=== PATIENT | female | born 1950 | race African-American/Black ===

== ENCOUNTER 2017-11-29 16:09 | Inpatient (IN) | payer MEDICARE ==
[~2017-11-29] VITALS: Ht 177.8 cm; Wt 54.4 kg
[2017-11-29 16:12] VITALS: BP 118/78
--- NOTE | 2017-11-29 17:15 | NUR ---
PT BIBA TO BED 1.
--- NOTE | 2017-11-29 17:18 | NUR ---
66F BIBA FROM FIELD C/O ALTERED LEVEL OF CONSCIOUSNESS; PER [facility], PT "WAS SUPPOSED TO BE AT A , WENT MISSING FOR SIX HOURS AND FOUND IN A [place] BY FAMILY"; PT APPEARS TIRED, WAKES TO NAME, WITH CONFUSION; PT ALERT TO SELF, TIME, AND PLACE, BUT UNAWARE OF SITUATION; PT STATES NO PAIN, NO SHORTNESS OF BREATH, NO CHEST PAIN, AND NO N/V/D AT THIS TIME; PT ABLE TO FOLLOW COMMANDS; BL LUNG SOUNDS CLEAR, RR EVEN/UNLABORED AT THIS TIME; SKIN IS WARM/DRY/INTACT; PT PLACED ON MONITOR, RESTING IN BED WITH HOB ELEVATED AND IN LOWEST POSITION; POSITIONED FOR COMFORT; ER MD MADE AWARE OF STATUS. WILL CONTINUE TO MONITOR.
--- NOTE | 2017-11-29 17:20 | NUR ---
PT TAKEN TO CT AND XRAY VIA GURNEY, ACCOMPANIED BY BUSINESS SERVICES SALES REPRESENTATIVE.
--- NOTE | 2017-11-29 17:30 | NUR ---
PT PLACED ON BED KAUFFMAN, WAITING FOR URINE. WILL CONTINUE TO MONITOR.
[2017-11-29] MEDS ORDERED: NACL 0.9% 2,500 ML IV ONE (18:05)
[2017-11-29] MEDS ORDERED: VANCOMYCIN PER PHARMACY MC PRN (18:10)
[2017-11-29] MEDS ORDERED: PIPERACILLIN/TAZOBACTAM 3.375 GM in DEXTROSE 5% 50 ML IV ONE (18:10)
[2017-11-29] MEDS ORDERED: VANCOMYCIN 1GM/DEXT 5% PREMIX 200 ML IV ONE (18:10)
[2017-11-29 18:11] LABS: HEMATOCRIT 32.2 % (36-48); HEMOGLOBIN 10.2 g/dL (12.0-16.0); MEAN CORPUSCULAR HEMOGLOBIN 21 pg (27-31); MEAN CORPUSCULAR HGB CONC 32 g/dL (33-37); MEAN CORPUSCULAR VOLUME 66 fL (80-94); PLATELET COUNT (AUTO) 164 K/uL (140-450); RED BLOOD CELL COUNT(AUTO) 4.86 MIL/uL (4.20-5.40); RED CELL DISTRIBUTION WIDTH 15.6 % (11.6-13.7); WHITE BLOOD COUNT (AUTO) 7.9 K/uL (4.8-10.8)
[2017-11-29] MEDS ORDERED: cefTRIAXone 2,000 MG in DEXTROSE 5% 100 ML IV ONE (18:20)
[2017-11-29] MEDS ORDERED: VANCOMYCIN 1,000 MG in DEXTROSE 5% 250 ML IV ONE (18:25)
[2017-11-29] MEDS ORDERED: ACETAMINOPHEN 650 MG/20.3 ML UDC ONE (18:26)
[2017-11-29] MEDS ORDERED: cefTRIAXone 2,000 MG VIAL ONE (18:42)
--- NOTE | 2017-11-29 18:49 | NUR ---
DAUGHTERS PROVIDED NUMBERS TO CONTACT PT: MEI ([phone], ATA [phone]
[2017-11-29] MEDS ORDERED: VANCOMYCIN 1,000 MG VIAL ONE (18:53)
--- NOTE | 2017-11-29 18:57 | NUR ---
PT APPEARS TO BE SLEEPING COMFORTABLY IN BED; RR EVEN/UNLABORED; PT AROUSABLE TO NAME; POSITIONED FOR COMFORT; WILL CONTINUE TO MONITOR.
--- NOTE | 2017-11-29 19:26 | NUR ---
Pt report given to JUANY HOOD. Transfer of care at this time.
--- NOTE | 2017-11-29 20:15 | NUR ---
DR COELHO AT BEDSIDE W/ MYSELF FOR LUMBAR PUNTURE, PROCEDURE NOT SUCCESSFULL, PT TOLERATED WELL. WILL CONTINUE TO MONITOR.
--- NOTE | 2017-11-29 21:30 | NUR ---
PT SLEEPIN GIN BED AT THIS TIME, ALERT TO NAME AND ENVIRONMENTAL STIMULI, PT NOT AWARE OF WHICH HOSPITAL SHE IS AT THIS TIME, REORIENTED.
[2017-11-29 21:55] LABS: EOSINOPHILS % (MANUAL) 2 % (0-4); LYMPHOCYTES % (MANUAL) 7 % (20-46); MONOCYTES % (MANUAL) 5 % (5-12)
[2017-11-29 22:10] LABS: APPEARANCE,URINE CLEAR (CLEAR); BILIRUBIN,URINE NEGATIVE (NEGATIVE); BLOOD, URINE NEGATIVE (NEGATIVE); COLOR,URINE YELLOW (YELLOW); LEUKOCYTE ESTERASE ,URINE NEGATIVE (NEGATIVE); NITRITE, URINE NEGATIVE (NEGATIVE); PH,URINE 5.5 (5.0-9.0); UGLUCOSE NEGATIVE (NEGATIVE)
[2017-11-29 22:14] LABS: ALBUMIN 2.9 g/dL (3.4-5.0); ANION GAP 14.3 (8-16); ASPARTATE AMINOTRANSFERASE 19 U/L (15-37); CARBON DIOXIDE 25.5 mmol/L (21-32); CHLORIDE 107 mmol/L (98-107); CREATININE 2.7 mg/dL (0.6-1.3); GFR ARICAN-AMERICAN 23 mL/min (>90); GLUCOSE 84 mg/dL (74-106); MAGNESIUM 1.6 mg/dL (1.8-2.4); POTASSIUM 3.8 mmol/L (3.5-5.1); SALICYLATE 3.4 mg/dL (2.8-20.0); SODIUM SERUM 143 mmol/L (136-145); TOTAL BILIRUBIN 0.8 mg/dL (0.0-1.0); UREA NITROGEN, BLOOD 36 mg/dL (7-18)
[2017-11-29 22:16] LABS: ACETAMINOPHEN < 0.5 ug/ml (10-30)
[2017-11-29] MEDS ORDERED: ASPIRIN 325 MG TAB PO SCH (22:35)
[2017-11-29 23:14] LABS: BARBITURATE, URINE NEG. ng/ml (NEG <=200); BENZODIAZEPINE, URINE NEG. ng/mL (NEG <=200); CANNABINOID, URINE NEG. ng/mL (NEG <=50); COCAINE, URINE NEG. ng/mL (NEG <=300); OPIATE, URINE NEG. ng/mL (NEG <=2000); PHENCYCLIDINE SCREEN,URINE NEG. ng/mL (NEG <=25)
--- NOTE | 2017-11-29 23:30 | NUR ---
pt resting in bed, comfort needs met at this time, will continue to monitor.
[2017-11-30] MEDS ORDERED: ASPIRIN 325 MG TAB PO ONE (00:20)
--- NOTE | 2017-11-30 00:30 | NUR ---
pt sleeping, arousable to name and environmental stimuli, when asking pt name, birthdate and location pt is answering appropriately, when i aked pt what day it was she answered satuday and when asked what she was doing earlier yesterday she states " i really dont know".
--- NOTE | 2017-11-30 02:07 | NUR ---
PT SLEEPING IN BED, VSS, WILL CONTINUE TO MONITOR.
[2017-11-30] MEDS ORDERED: ONDANSETRON 4 MG/2 ML VIAL IM/IVP PRN (02:20)
[2017-11-30] MEDS ORDERED: ZOLPIDEM 5 MG TAB PO PRN (02:20)
[2017-11-30] MEDS ORDERED: ACETAMINOPHEN 325 MG TAB PO PRN (02:20)
[2017-11-30] MEDS ORDERED: MORPHINE SULFATE 2 MG/ML SYR IVP PRN (02:20)
[2017-11-30] MEDS ORDERED: HEPARIN PER PHARMACY MC PRN (02:20)
[2017-11-30] MEDS ORDERED: LORazepam 0.5 MG TAB PO PRN (02:20)
[2017-11-30] MEDS ORDERED: hePARIN / DEXT 5% PREMIX 250 ML IV SCH ×2 (02:20→12:30)
[2017-11-30] MEDS ORDERED: DOCUSATE SODIUM 100 MG GELCAP PO PRN (02:20)
[2017-11-30] MEDS ORDERED: HYDROcodone/APAP 7.5/325 MG 1 TAB PO PRN (02:20)
[2017-11-30 02:58] VITALS: BP 141/78
--- NOTE | 2017-11-30 02:58 | NUR ---
ADMITTED A 56F FROM ER. CAME BY DONYA DUE TO ALOC, ELEVATED TROPONIN . AWAKE,ALERT AND ORIENTED X3-4. STILL WITH FORGETFULNESS AT TIMES. WITH IV ACCESS ON THE LT FA #20.CLEAR AND PATENT. CAN AMBULATE WITH ASSIST. ORIENTED TO HOSPITAL ROUTINES. PLAN OF CARE DISCUSSED AND STILL NEED REINFORCEMENT. BED ON POW POSITION. CALL LIGHT PLACED WITHIN EASY REACH. WILL CONTINUE TO MONITOR.
--- NOTE | 2017-11-30 02:58 | NUR ---
Patient will be admitted to care of DR. BENSON. Admited to TELE. Will go to [id number]. Belongings list completed. Report to NEVA.
[2017-11-30] MEDS ORDERED: NITROGLYCERIN 0.4 MG TAB SL PRN (03:30)
[2017-11-30] MEDS ORDERED: PRED20TA5 PO (03:35)
[2017-11-30] MEDS ORDERED: MECLIZINE 25 MG TAB PO PRN (03:35)
[2017-11-30] MEDS ORDERED: LEVO500P IV (03:35)
[2017-11-30] MEDS ORDERED: CARV12.52 PO (03:35)
--- NOTE | 2017-11-30 03:56 | NUR ---
HEPARIN DRIP STARTED ORDERED. IST PTT TO BE DRAWN 0930.
[2017-11-30 03:59] LABS: CHOL/HDL RATIO 2.7 (1-4.5); FREE T4 (FREE THYROXINE) 1.06 ng/dL (0.76-1.46); MAGNESIUM 1.6 mg/dL (1.8-2.4); PHOSPHORUS 3.3 mg/dL (2.5-4.9); THYROID STIMULATING HORMONE 2.72 uIU/mL (0.34-3.74)
[2017-11-30] MEDS: NACL 0.9% 1,000 ML IV SCH ×3 (04:12→22:18)
[2017-11-30 05:30] VITALS: BP_SYST 150; BP_SYST 153; BP_DIAS 66; BP_DIAS 81
--- NOTE | 2017-11-30 07:00 | NUR ---
LT HAND IV THAT WAS STARTED FOR THE NS 100 WAS PULLED OUT. RESTARTED A NEW IV ON R HAND#22.
--- NOTE | 2017-11-30 07:30 | NUR ---
ENDORSED PT IN STABLE CONDITION TO AM NURSE.
--- NOTE | 2017-11-30 07:31 | NUR ---
RECEIVED REPORT FROM GENERAL MILLING SUPERINTENDENT NURSE NEVA AT BEDSIDE FOR CONTINUITY OF CARE. PT IS AWAKE AND ORIENTED. INTRODUCED SELF AND UPDATED BOARD. NO SIGNS OF DISTRESS. BED IN LOW POSITION, WHEELS LOCKED, CALL LIGHT WITHIN REACH. WILL CONTINUE TO MONITOR.
[2017-11-30 07:32] LABS: BASOPHILS % (AUTO) 0.4 % (0.0-2.0); EOSINOPHILS # (AUTO) 0.1 K/uL (0-0.4); HEMATOCRIT 27.3 % (36-48); HEMOGLOBIN 8.2 g/dL (12.0-16.0); LYMPHOCYTES # (AUTO) 0.7 K/uL (2.5-16.5); LYMPHOCYTES % (AUTO) 12.9 % (20.5-51.1); MEAN CORPUSCULAR HEMOGLOBIN 20 pg (27-31); MEAN CORPUSCULAR HGB CONC 30 g/dL (33-37); MEAN CORPUSCULAR VOLUME 68 fL (80-94); MONOCYTES # (AUTO) 0.5 K/uL (0.8-1.0); MONOCYTES % (AUTO) 9.2 % (1.7-9.3); NEUTROPHILS % (AUTO) 75.5 % (42.2-75.2); PLATELET COUNT (AUTO) 126 K/uL (140-450); RED BLOOD CELL COUNT(AUTO) 4.04 MIL/uL (4.20-5.40); RED CELL DISTRIBUTION WIDTH 16.1 % (11.6-13.7); WHITE BLOOD COUNT (AUTO) 5.3 K/uL (4.8-10.8)
[2017-11-30 07:46] LABS: PROTHROMBIN TIME 10.7 secs (10.8-13.4)
[2017-11-30 08:00] VITALS: BP 151/82
[2017-11-30 08:09] LABS: MAGNESIUM 1.5 mg/dL (1.8-2.4); PHOSPHORUS 3.4 mg/dL (2.5-4.9)
[2017-11-30 08:12] LABS: ANION GAP 9.7 (8-16); CARBON DIOXIDE 22.9 mmol/L (21-32); POTASSIUM 3.6 mmol/L (3.5-5.1)
[2017-11-30 08:13] LABS: CREATININE 2.4 mg/dL (0.6-1.3)
--- NOTE | 2017-11-30 08:59 | NUR ---
HELD HEPARIN DRIP. PTT REPORTED 116. PT IN NO SIGNS OF DISTRESS. NO S/SX OF BLEEDING. WILL CONTINUE TO MONITOR.
[2017-11-30] MEDS ORDERED: ASPIRIN 81 MG TAB.CHEW PO SCH (09:00)
[2017-11-30] MEDS ORDERED: METOPROLOL 25 MG TAB PO SCH (09:00)
[2017-11-30] MEDS: LISINOPRIL 5 MG TAB PO SCH (09:02)
[2017-11-30] MEDS: FERROUS GLUCONATE 324 MG TAB PO SCH ×2 (09:02→18:05)
[2017-11-30] MEDS: LACTOBACILLUS RHAMNOSUS GG 1 EACH CAP PO SCH (09:03)
[2017-11-30] MEDS: ATORVASTATIN 20 MG TAB PO SCH (09:03)
--- NOTE | 2017-11-30 09:09 | NUR ---
CALLED [facility] AND WAS INFORMED THEY WERE NOTIFIED OF THIS PATIENT'S ADMIT. FAXED INITIAL REVIEW TO [facility] [phone] PHONE [phone]
--- NOTE | 2017-11-30 09:17 | NUR ---
PATIENT HAS BEEN SCREENED AND CATEGORIZED HIGH NUTRITION RISK. PT WILL BE SEEN WITHIN 1-2 DAYS OF ADMISSION. 11/30/17-12/01/[address]
--- NOTE | 2017-11-30 10:45 | NUR ---
PT NOTES 1045 PT EVAL ORDER RECEIVED, NOTED PATIENT WITH (+) TROPONIN, AWAITING CARDIO CONSULT, WILL REQUIRE CLEARANCE TO CONT WITH PT, AND WAIT AT LEAST 24 HRS S/P PEAK TROPONIN TO INITIATE PT EVAL. NURSING AWARE.
[2017-11-30 12:00] VITALS: BP 127/69
--- NOTE | 2017-11-30 13:04 | NUR ---
STARTED HEPARIN DRIP AT 650UNITS/HR. PTT 71. PT TOLERATING WELL. NO SIGNS OF DISTRESS. WILL CONTINUE TO MONITOR.
[2017-11-30 16:00] VITALS: BP 153/73
[2017-11-30] MEDS ORDERED: FAMO-90 PO (16:45)
[2017-11-30] MEDS ORDERED: IMI50 PO (16:45)
[2017-11-30] MEDS ORDERED: NIFE60TE8 PO (16:45)
[2017-11-30] MEDS ORDERED: TAP5 PO (16:45)
[2017-11-30] MEDS ORDERED: HYDR-3004 PO (16:45)
[2017-11-30] MEDS ORDERED: SUCR1TAB35 PO (16:45)
[2017-11-30] MEDS ORDERED: DOCU-299 PO (16:45)
[2017-11-30] MEDS ORDERED: POTA10TE30 PO (16:45)
[2017-11-30] MEDS ORDERED: LISI5TAB18 PO (16:45)
[2017-11-30] MEDS ORDERED: PRED10TA5 PO (16:45)
[2017-11-30] MEDS ORDERED: MAGNESIUM OXIDE 400 MG TAB PO SCH (17:30)
[2017-11-30] MEDS: hydrALAZINE 25 MG TAB PO SCH (18:05)
--- NOTE | 2017-11-30 18:46 | NUR ---
PTT 55.2. NO CHANGE IN HEPARIN DRIP RATE. INFUSING AT 650 UNITS/HR. PT TOLERATING WELL. NO SIGNS OF DISTRESS WILL CONTINUE TO MONITOR.
--- NOTE | 2017-11-30 19:10 | NUR ---
STOPPED HEPARIN DRIP PER DR. ORDER.
--- NOTE | 2017-11-30 19:15 | NUR ---
ENDORSED PT TO ECONOMICS DEPARTMENT CHAIR NURSE RIYA AT BEDSIDE FOR CONTINUITY OF CARE. PT IN STABLE CONDITION.
[2017-11-30 20:00] VITALS: BP 141/70
--- NOTE | 2017-11-30 20:10 | NUR ---
RECEIVED REPORT FROM BRIANNA CHARGE NURSE AT BEDSIDE FOR CONTINUITY OF CARE. PT IS AWAKE AND ORIENTED. INTRODUCED SELF AND UPDATED BOARD. NO SIGNS OF DISTRESS. BED IN LOW POSITION, WHEELS LOCKED, CALL LIGHT WITHIN REACH. WILL CONTINUE TO MONITOR. IV PATENT AND INTACT
[2017-12-01] VITALS: BP 140/72
[2017-12-01 04:00] VITALS: BP 154/74
--- NOTE | 2017-12-01 06:02 | NUR ---
PTS BP 166/89 PULSE 89. O2 SAT: 98% MADE DR. ROGERS AWARE
[2017-12-01] MEDS ORDERED: ENALAPRILAT 2.5 MG/2 ML VIAL IVP PRN (06:10)
[2017-12-01] MEDS: NACL 0.9% 1,000 ML IV SCH (06:56)
--- NOTE | 2017-12-01 07:36 | NUR ---
REPORT GIVEN TO CHARGE NURSE FABRIZIO HARRINGTON FOR CONTINUITY OF CARE, PT IN STABLE CONDITION. NO S/S OF DISTRESS NOTED
[2017-12-01 08:00] VITALS: BP 157/80
[2017-12-01] MEDS: FERROUS GLUCONATE 324 MG TAB PO SCH ×2 (08:00→17:34)
[2017-12-01 08:11] LABS: T4 (THYROXINE) 7.2 ug/dL (4.5-12.0)
[2017-12-01 08:45] LABS: ANION GAP 12.5 (8-16); CREATININE 2.1 mg/dL (0.6-1.3); POTASSIUM 3.5 mmol/L (3.5-5.1)
--- NOTE | 2017-12-01 08:45 | NUR ---
PATIENT REPORT GIVEN AT BEDSIDE, PATIENT IS AAOX3 AND SHOWS NO S/S OF ACUTE DISTRESS ON ROOM AIR. ON TELE MONITOR. SKIN INTACT. NOTED IV ON THE RH AND LFT WRIST, PATENT AND INTACT. PATIENT DENIES PAIN AT THIS TIME. DISCUSSED POC WITH PATIENT AND HE VERBALIZED UNDERSTANDING. THE BED IS IN LOW POSITION WITH CALL LIGHT WITHIN REACH.
[2017-12-01 08:49] LABS: MAGNESIUM 1.5 mg/dL (1.8-2.4); PHOSPHORUS 2.4 mg/dL (2.5-4.9)
[2017-12-01 09:00] LABS: HEMATOCRIT 26.5 % (36-48); HEMOGLOBIN 8.1 g/dL (12.0-16.0); MEAN CORPUSCULAR HEMOGLOBIN 20 pg (27-31); MEAN CORPUSCULAR HGB CONC 31 g/dL (33-37); MEAN CORPUSCULAR VOLUME 66 fL (80-94); PLATELET COUNT (AUTO) 120 K/uL (140-450); RED BLOOD CELL COUNT(AUTO) 4.03 MIL/uL (4.20-5.40); RED CELL DISTRIBUTION WIDTH 15.9 % (11.6-13.7); WHITE BLOOD COUNT (AUTO) 3.9 K/uL (4.8-10.8)
[2017-12-01] MEDS ORDERED: NIFEdipine 60 MG TABER PO SCH (09:00)
[2017-12-01] MEDS ORDERED: ASPIRIN 81 MG TAB.CHEW PO SCH (09:00)
[2017-12-01] MEDS ORDERED: METHIMAZOLE 5 MG TAB PO SCH (09:00)
[2017-12-01] MEDS ORDERED: SUCRALFATE 1 GM TAB PO SCH (09:00)
[2017-12-01] MEDS ORDERED: FAMOTIDINE 20 MG TAB PO SCH (09:00)
[2017-12-01] MEDS ORDERED: predniSONE 10 MG TAB PO SCH (09:00)
[2017-12-01] MEDS ORDERED: LISINOPRIL 5 MG TAB PO SCH (09:00)
[2017-12-01] MEDS ORDERED: POTASSIUM CHLORIDE 10 MEQ TABER PO SCH (09:00)
[2017-12-01] MEDS: hydrALAZINE 25 MG TAB PO SCH ×3 (09:22→17:33)
[2017-12-01] MEDS: LACTOBACILLUS RHAMNOSUS GG 1 EACH CAP PO SCH (09:23)
[2017-12-01] MEDS: ATORVASTATIN 20 MG TAB PO SCH (09:24)
[2017-12-01] MEDS: LISINOPRIL 5 MG TAB PO SCH (09:25)
--- NOTE | 2017-12-01 09:26 | NUR ---
ADMINISTERED SCHEDULED MEDICATIONS. PATIENT SWALLOWED WITHOUT DIFFICULTY . ALL NEEDS MET AT THIS TIME.
[2017-12-01 10:26] LABS: LYMPHOCYTES % (MANUAL) 24 % (20-46)
[2017-12-01 10:27] LABS: MONOCYTES % (MANUAL) 10 % (5-12)
[2017-12-01 10:28] LABS: EOSINOPHILS % (MANUAL) 2 % (0-4)
[2017-12-01] MEDS ORDERED: LISI10TA11 PO (11:30)
--- NOTE | 2017-12-01 11:45 | NUR ---
PATIENT IS RESTING AND SHOWS NO S/S OF ACUTE DISTRESS ON ROOM AIR. BED IN LOW POSITION.
[2017-12-01 12:00] VITALS: BP 149/78
--- NOTE | 2017-12-01 14:25 | NUR ---
PATIENT IS AWARE OF DISCHARGE ORDER PATIENT TO CALL FAMILY FOR TRANSPORTATION.
[2017-12-01 15:07] LABS: FOLIC ACID 9.9 ng/mL (>3.0)
[2017-12-01] MEDS ORDERED: MAGNESIUM OXIDE 400 MG TAB PO SCH (15:30)
--- NOTE | 2017-12-01 15:33 | NUR ---
ADMINISTERED SCHEDULED MEDICATIONS. PATIENT SWALLOWED WITHOUT DIFFICULTY.
[2017-12-01 16:00] VITALS: BP 128/83
--- NOTE | 2017-12-01 17:35 | NUR ---
ADMINISTERED SCHEDULED MEDICATIONS. PATIENT DENIES PAIN AT THIS TIME. PATIENT'S NEEDS MET. BED IN LOW POSITION WITH CALL LIGHT WITHIN REACH.
--- NOTE | 2017-12-01 18:40 | NUR ---
PATIENT HAS BEEN DISCHARGED. ALL DISCHARGE INSTRUCTIONS GIVEN, ALL PAPERWORK SIGNED. ALL QUESTIONS ANSWERED, PATIENT VERBALIZED UNDERSTANDING OF CONTINUITY OF CARE AT HOME. ALL BELONGINGS WITH PATIENT. BOTH IV'S DISCONTINUED WITH CANNULA INTACT. WRISTBANDS REMOVED. PATIENT LEFT IN WHEELCHAIR WITH FAMILY PRESENT AT SIDE. PATIENT LEFT IN STABLE CONDITION.
--- NOTE | 2017-12-04 15:37 | NUR ---
Disharge summary faxed to [employer]er per request at [phone].
== END 2017-12-01 18:40 | disposition home or self-care (01) | DRG 73 ==
LOC: MED 16:09 → MTU 11-30 02:20
PROVIDERS: ADMIT Student in an Organized Health Care Education/Training Program; ATTEND Student in an Organized Health Care Education/Training Program
PROC: 00JU3ZZ Inspection of Spinal Canal, Percutaneous Approach (ICD-10-PCS; principal; 2017-11-29)
DX: G90.9 Disorder of the autonomic nervous system, unspecified (principal); N17.0 Acute kidney failure with tubular necrosis; E44.0 Moderate protein-calorie malnutrition; I42.8 Other cardiomyopathies; Z68.1 Body mass index [BMI] 19.9 or less, adult; D50.9 Iron deficiency anemia, unspecified; D86.9 Sarcoidosis, unspecified; I10 Essential (primary) hypertension; E03.9 Hypothyroidism, unspecified; Z79.2 Long term (current) use of antibiotics; Z79.899 Other long term (current) drug therapy
CPT/HCPCS: 36415; 70450; 71045; 80048; 80053; 80305; 81003; 81025; 82150; 82550; 82607; 82746; 83036; 83540; 83605; 83690; 83735; 83880; 84100; 84436; 84439; 84443; 84479; 84484; 85025; 85045; 85610; 85730; 87040; 87081; 93005; 93880; 96361; 96365; 96366; 96367; 99285; G0480; G0482; J0696; J1644; J3370; J3490; J7030; J7060; J7512; Q0092